=== PATIENT | male | born 1965 | race Caucasian/White ===

== ENCOUNTER 2016-07-31 21:29 | Emergency (ER) | payer MEDICARE, MEDICAID ==
[2016-08-01] MEDS ORDERED: DUONEB INH ONE ×2 (01:13)
== END 2016-08-01 02:29 | disposition home or self-care (01) ==
LOC: ER 21:29
DX: J20.9 Acute bronchitis, unspecified (principal); Z79.899 Other long term (current) drug therapy; Z79.84 Long term (current) use of oral hypoglycemic drugs; Z79.82 Long term (current) use of aspirin; E11.9 Type 2 diabetes mellitus without complications; I10 Essential (primary) hypertension; J44.9 Chronic obstructive pulmonary disease, unspecified
CPT/HCPCS: 36415; 71020; 80053; 82553; 83880; 84484; 85025; 93005; 94640